=== PATIENT | male | born 1965 | race Caucasian/White ===

== ENCOUNTER → 2019-06-22 | Day surgery (SDC) | payer OTHER ==
[2019-06-21 10:20] LABS: BASOPHILS % 0.6 % (0.0-1.0); EOSINOPHILS # (AUTO) 0.8 (0.0-0.4); EOSINOPHILS % 11.4 % (0.0-6.0); HEMATOCRIT 52.5 % (38.2-49.6); HEMOGLOBIN 18.4 g/dL (14.0-18.0); LYMPHOCYTES % 28.2 % (18.0-39.1); MEAN CORPUSCULAR HEMOGLOBIN 30.3 pg (28-32); MEAN CORPUSCULAR VOLUME 86.3 fL (81-99); MONOCYTES # (AUTO) 0.7 (0.2-0.8); MONOCYTES % 10.3 % (4.4-11.3); NEUTROPHILS # (AUTO) 3.4 (2.1-6.9); NEUTROPHILS % 48.9 % (38.7-80.0); PLATELET COUNT 218 x10e3/uL (140-360); RED BLOOD COUNT 6.08 x10e6/uL (4.3-5.7); RED CELL DISTRIBUTION WIDTH 14.3 % (11.7-14.4)
[2019-06-21 10:37] LABS: ALANINE AMINOTRANSFERASE 35 IU/L (0-55); ALBUMIN 4.4 g/dL (3.5-5.0); ALBUMIN/GLOBULIN RATIO 1.5 (0.8-2.0); ALKALINE PHOSPHATASE 48 IU/L (40-150); ANION GAP 13.3 mmol/L (8-16); BLOOD UREA NITROGEN 11 mg/dL (7-26); BUN/CREATININE RATIO 9 (6-25); CARBON DIOXIDE 27 mmol/L (22-29); CHLORIDE 101 mmol/L (98-107); EST GLOMERULAR FILTRATION RATE > 60 ML/MIN (60-); GLUCOSE 100 mg/dL (74-118); POTASSIUM 4.3 mmol/L (3.5-5.1); SODIUM 137 mmol/L (136-145)
[~2019-06-22] VITALS: Ht 182.9 cm; Wt 118.4 kg
[2019-06-22] VITALS (7 sets, daily range): BP systolic 115–130; BP diastolic 66–84
[~2019-06-22] MED LIST: ALPRAZOLAM 0.5 MG TAB ONE; ASPIR 8181 MG PO; DIPHENHYDRAMINE HCL 25 MG CAP ONE; FENOFIBRATE145 MG PO; FENTANYL CITRATE/PF 100MCG/2 ML INJ ONE; HEPARIN SOD/SOD CHLORIDE 2,000 ML ONE; IOPAMIDOL 370 MG/ML 200 ML INFUS..BTL INJ ONE; LIDOCAINE HCL 2% LOCAL 20 ML VIAL ONE; LOSARTAN-HCTZ1 EAC1 PO; MIDAZOLAM HCL 2 MG/2 ML VIAL ONE; PRAVASTATIN SOD40 MG PO; SODIUM CHLORIDE 0.9% 1000ML 1,000 ML ONE; VERAPAMIL HCL 2.5 MG/ML 2 ML VIAL ONE
--- OUTSIDE RECORDS SUMMARY | 2019-06-22 08:36 | XMS REPORT | Continuity of Care Document ---
Author Author [facility] Address Unknown Phone Unavailable Care Team Providers Care Liturgical Music Director Name Role Phone reQwip Information Tiem[facility] Unavailable Unavailable Problems Problem Status Onset Date Classification Date Reported Comments Source K11.21 - ACUTE SIALOADENITIS Active 08/16/2016 [facility] Medications No Data Provided for This Section Allergies, Adverse Reactions, Alerts No Known Medication Allergies Immunizations No Data Provided for This Section Results No Data Provided for This Section Pathology Reports No Data Provided for This Section Diagnostic Reports Report Value Date Source Neck soft tissue w contrast CT EXAMINATION: CT soft tissue neck with contrast DATE: 08/19/2016 INDICATION: Acute sialoadenitis. Discussion: CT images of the soft tissues the neck are performed following intravenous menstruation of 100 mL Omnipaque 300 contrast material. A marker is placed on the skin surface over the area of clinical concern. There is a 1.4 cm diameter peripherally enhancing low density mass lesion in the left parotid gland at the superior margin of the gland in the superficial lobe. Fat stranding is present in the adjacent subcutaneous soft tissues. There is an enhancing 1 cm lymph node just inferior to the mass, or possibly contiguous with it. The remainder of the left parotid gland is unremarkable. A 1.65 cm diameter level 2A jugular node is noted on the left side without enhancement. Other cervical nodes are within normal size. The other salivary glands are unremarkable. I do not see any solid lithiasis. There is no active periodontal disease. The parapharyngeal and retropharyngeal spaces are unremarkable. Lung apices are unremarkable. IMPRESSION: There is an inflammatory lesion in the left parotid gland which could represent a suppurative lymph node or abscess. Neoplasm would be less likely given the clinical presentation and presence of surrounding inflammation. Follow-up recommended after appropriate antibiotic therapy. 08/19/2016 [facility] Consultation Notes No Data Provided for This Section Discharge Summaries No Data Provided for This Section History and Physicals No Data Provided for This Section Vital Signs No Data Provided for This Section Encounters Location Location Details Encounter Type Encounter Number Reason For Visit Attending Provider ADM Date DC Date Status Source [facility] [place] [facility] [id number] Nicholas Garcia 08/19/2016 08/20/2016 [facility] [place] Procedures No Data Provided for This Section Assessment and Plan No Data Provided for This Section Plan of Care No Data Provided for This Section Social History Social History Date Source Social History TypeResponse 08/20/2016 [facility] [place] Family History No Data Provided for This Section Advance Directives No Data Provided for This Section Functional Status No Data Provided for This Section
--- OUTSIDE RECORDS SUMMARY | 2019-06-22 08:36 | XMS REPORT | Summary of Care ---
Author Author [facility] Outpatient [facility] Address Unknown Phone Unavailable Encounter HQ Encntr_alias(FIN) [id number] Date(s): 08/19/16 - 08/19/16 [facility] Out[facility] [address] [facility], [address] [place] [phone] Discharge Disposition: Home or Self Care Attending Physician: Nicholas Garcia MD Vital Signs No data available for this section Problem List No data available for this section Allergies, Adverse Reactions, Alerts Substance Reaction Severity Status NKDA Active Medications No data available for this section Results No data available for this section Immunizations No data available for this section Procedures No data available for this section Social History Social History Type Response Assessment and Plan No data available for this section
--- NOTE | 2019-06-22 11:10 | NUR ---
1110 Bedside report received from Julius MCCORMICK.Identiferx2. Alert oriented and appropriate, PERRLA, respirations even and unlabored to room air. Pulses x4 extremities equal and strong. Pedal pulses PT/DP x4. Cap fill brisk < 3 sec. Skin warm and dry integrity appears D/I .IV 20g 100cchr via iv controller,to left hand presents healthy w/o s/s of infiltration or complaint. Abdomen soft and supple. pt offered toileting, denies need to urinate or defecate. No personal affects with patient. Family Lewis at bedside. Pt and family verbalizes understanding of POC. P Currently w/o complaint of pain or need. ds/rn
--- NOTE | 2019-06-22 12:00 | NUR ---
1200 RADIAL Compression removal: Initial Cuff volume 10 cc -2 cc Removed No hematoma/bleeding noted with normal neurovascular function. 1215 -2 cc Removed No hematoma/ bleeding noted with normal neurovascular function. 1230 -2 cc Removed No hematoma/bleeding noted with normal neurovascular function. 1245 -2cc Removed No hematoma/ bleeding noted with normal neurovascular function. Air removal completed. Stasis achieved sterile 2x2,Tegaderm, Coban dressing No hematoma, bleeding noted with normal neurovascular function. Wrist splint in place. Pt instructed on POC. Ds/Rn
--- NOTE | 2019-06-22 12:55 | Operative Report ---
DATE OF PROCEDURE: 06/22/2019 SURGEON: Lorne Wilkinson MD INDICATIONS: Coronary artery disease, abnormal stress test. PROCEDURES PERFORMED: 1. Left heart catheterization, selective coronary angiography, left ventriculography. 2. Deployment of right wrist TR band. COMPLICATIONS: None. RECOMMENDATIONS: Medical therapy. DESCRIPTION OF PROCEDURE: Access obtained in the right radial artery. A 5-Zimbabwean sheath was placed. Diagnostic coronary angiogram revealed mild coronary artery disease of less than 20% luminal stenosis, mid left anterior descending artery 30% to 50% stenosis. ANDREW-3 flow in all vessels. LV ejection fraction 60%. LV end-diastolic pressure of 10. No gradient across the aortic valve on pullback. No intervention was deemed necessary. Right wrist guide and sheath removed. TR band applied. The patient discharged home same day. Lorne Wilkinson MD [facility]/MODL /[id number]
--- NOTE | 2019-06-22 13:00 | NUR ---
1300 pt meets DC criteria. Rt radial site assessed for s/s of complication and presence of hematoma. Skin warm, dry, no discolor, and pulses present. IV removed from left hand. Distal tip appears intact. VS WNL. Pt denies pain, sob, or need at this time. Family at [place]. Review of discharge paperwork and follow up instructions. verbalized understanding. Pt to wheelchair and transported to front of hospital. Transferred to private vehicle under own strength w/o incident with DC paperwork in hand. - ds/rn
== END | disposition home or self-care (01) ==
LOC: CATH LAB 08:28
PROVIDERS: ATTEND Internal Medicine Interventional Cardiology
DX: I25.118 Atherosclerotic heart disease of native coronary artery with other forms of angina pectoris (principal); R94.39 Abnormal result of other cardiovascular function study; I10 Essential (primary) hypertension; E78.5 Hyperlipidemia, unspecified; Z01.812 Encounter for preprocedural laboratory examination; Z79.899 Other long term (current) drug therapy; Z79.82 Long term (current) use of aspirin; Z68.35 Body mass index [BMI] 35.0-35.9, adult; Z86.19 Personal history of other infectious and parasitic diseases; Z82.49 Family history of ischemic heart disease and other diseases of the circulatory system
CPT/HCPCS: 36415; 80053; 85025; 93458; C1769; C1887; J2001; J2250; J3010; J7030; Q9967

== ENCOUNTER → 2020-09-12 | Day surgery (SDC) | payer OTHER ==
[2020-09-08 09:20] LABS: BASOPHILS # (AUTO) 0.1 (0.0-0.1); BASOPHILS % 0.8 % (0.0-1.0); EOSINOPHILS # (AUTO) 0.6 (0.0-0.4); EOSINOPHILS % 9.4 % (0.0-6.0); HEMOGLOBIN 13.7 g/dL (14.0-18.0); LYMPHOCYTES # (AUTO) 2.2 (1.0-3.2); LYMPHOCYTES % 35.6 % (18.0-39.1); MEAN CORPUSCULAR HEMOGLOBIN 30.8 pg (28-32); MEAN CORPUSCULAR HGB CONC 34.3 g/dL (31-35); MEAN CORPUSCULAR VOLUME 89.9 fL (81-99); MONOCYTES # (AUTO) 0.6 (0.2-0.8); MONOCYTES % 9.7 % (4.4-11.3); NEUTROPHILS # (AUTO) 2.8 (2.1-6.9); NEUTROPHILS % 44.2 % (38.7-80.0); PLATELET COUNT 182 x10e3/uL (140-360); RED BLOOD COUNT 4.45 x10e6/uL (4.3-5.7); RED CELL DISTRIBUTION WIDTH 13.2 % (11.7-14.4)
[2020-09-08 09:48] LABS: ALANINE AMINOTRANSFERASE 50 IU/L (0-55); ALBUMIN 4.4 g/dL (3.5-5.0); ALBUMIN/GLOBULIN RATIO 1.6 (0.8-2.0); ALKALINE PHOSPHATASE 39 IU/L (40-150); ANION GAP 12.4 mmol/L (8-16); BLOOD UREA NITROGEN 20 mg/dL (7-26); BUN/CREATININE RATIO 17 (6-25); CALCIUM 9.5 mg/dL (8.4-10.2); CARBON DIOXIDE 28 mmol/L (22-29); CHLORIDE 105 mmol/L (98-107); EST GLOMERULAR FILTRATION RATE > 60 ML/MIN (60-); GLUCOSE 98 mg/dL (74-118); POTASSIUM 4.4 mmol/L (3.5-5.1); SODIUM 141 mmol/L (136-145)
[~2020-09-12] VITALS: Ht 182.9 cm; Wt 108.9 kg
--- NOTE | 2020-09-12 15:20 | NUR ---
Report received from Travon Galindo RN. Alert oriented and appropriate, PERRLA, respirations even and unlabored to room air. Pulses x4 extremities equal and palpable . Cap fill brisk < 3 sec. + neurovascular function of right wrist/hand w/ TR Band present w/ 14ml to bladder. No s/s of swelling or discolor at site. VS trend reviewed and medications given. Skin warm and dry integrity appears intact in general. IV left hand presents healthy w/o s/s of infiltration or complaint. Abdomen soft and supple. pt offered toileting, denies need to urinate or defecate. Resting with HOB elevated aprox 30o. Personal affects with patient including spouse. Pt verbalizes understanding of POC for DC. Educated cosmetics demonstrator light use. bed low and locked, side rails up x2 and call light at side. bedside monitoring in use. pt using provided/ personal mask for COVID-19 mitigation. transfer of care -cgf
[2020-09-12 15:30] VITALS: BP 120/69
[2020-09-12 15:55] VITALS: BP 135/69
[2020-09-12 16:10] VITALS: BP 122/74
[2020-09-12 16:25] VITALS: BP 109/60
[2020-09-12 16:40] VITALS: BP 118/66
[2020-09-12 16:55] VITALS: BP 120/82
--- NOTE | 2020-09-12 17:00 | NUR ---
Pt meets discharge criteria. VS wnl, alert and oriented. Pt and Family Understands discharge instruction. Overall general assess w/o gross outliers. Skin warm, dry, and intact. Right radial dressing soft w/o s/s of hematoma. + neurovascular function of right hand present. IV removed and appears distal tip is intact, Jessica Smalls staff internist office based only member verifying. Pt maintains mask on for COVID 19 precautions being taken by wheel chair to awaiting car. Transfers w/o gross distress with discharge paperwork in hand.-cgf
--- NOTE | 2020-09-12 17:15 | Operative Report ---
DATE OF PROCEDURE: 09/12/2020 SURGEON: Lorne Wilkinson MD INDICATIONS: Coronary artery disease, angina, and abnormal stress test. PROCEDURES PERFORMED: 1. Left heart catheterization, selective coronary angiography. 2. Ultrasound-guided access in the right radial artery. 3. Conscious sedation, 35 minutes. 4. Deployment of right wrist TR band. COMPLICATIONS: None. RECOMMENDATIONS: Medical therapy. Consideration of ranolazine for endothelial dysfunction. DESCRIPTION OF PROCEDURE: Access was obtained in the right radial artery using ultrasound guidance. A 5-Sammarinese sheath was placed. Coronary angiography demonstrated minimal coronary artery disease, less than 10% luminal irregularities. Flow/ANDREW 2 was noted in all coronary vessels consistent with endothelial dysfunction. LV end-diastolic pressure of 10. No gradient across the aortic valve on pullback. Right wrist TR band applied. The patient discharged home the same day. MD HERLINDA Morrison/MODL /[id number]
== END | disposition home or self-care (01) ==
LOC: CATH LAB 13:49
PROVIDERS: ATTEND Internal Medicine Interventional Cardiology
DX: I25.118 Atherosclerotic heart disease of native coronary artery with other forms of angina pectoris (principal); R94.39 Abnormal result of other cardiovascular function study; I10 Essential (primary) hypertension; E78.00 Pure hypercholesterolemia, unspecified; E66.9 Obesity, unspecified; Z01.812 Encounter for preprocedural laboratory examination; Z20.828 Contact with and (suspected) exposure to other viral communicable diseases; Z79.82 Long term (current) use of aspirin; Z68.33 Body mass index [BMI] 33.0-33.9, adult; Z82.49 Family history of ischemic heart disease and other diseases of the circulatory system; Z83.3 Family history of diabetes mellitus
CPT/HCPCS: 36415; 76937; 80053; 85025; 93458; C1769; C1887; J2001; J2250; J3010; J7030; Q9967; U0002; 99152

== ENCOUNTER 2021-07-18 15:34 | Emergency (ER) | payer SELFPAY ==
[~2021-07-18] VITALS: Ht 195.6 cm; Wt 154.2 kg
[~2021-07-18 15:34] MED LIST changes: -ALPRAZOLAM 0.5 MG TAB ONE; -DIPHENHYDRAMINE HCL 25 MG CAP ONE; -FENTANYL CITRATE/PF 100MCG/2 ML INJ ONE; -HEPARIN SOD/SOD CHLORIDE 2,000 ML ONE; -IOPAMIDOL 370 MG/ML 200 ML INFUS..BTL INJ ONE; -LIDOCAINE HCL 2% LOCAL 20 ML VIAL ONE; -MIDAZOLAM HCL 2 MG/2 ML VIAL ONE; -SODIUM CHLORIDE 0.9% 1000ML 1,000 ML ONE; -VERAPAMIL HCL 2.5 MG/ML 2 ML VIAL ONE
[2021-07-18] MEDS ORDERED: KETOROLAC TROMETHAMINE 30 MG/ML VIAL IV STA (16:09)
[2021-07-18] MEDS ORDERED: HYDRALAZINE HCL 20 MG/ML VIAL IV STA (16:09)
[2021-07-18 16:17] LABS: BASOPHILS % 0.3 % (0.0-1.0); EOSINOPHILS # (AUTO) 0.1 (0.0-0.4); EOSINOPHILS % 1.3 % (0.0-6.0); HEMATOCRIT 42.7 % (38.2-49.6); HEMOGLOBIN 15.3 g/dL (14.0-18.0); LYMPHOCYTES # (AUTO) 1.1 (1.0-3.2); LYMPHOCYTES % 28.8 % (18.0-39.1); MEAN CORPUSCULAR HEMOGLOBIN 30.8 pg (28-32); MEAN CORPUSCULAR HGB CONC 35.8 g/dL (31-35); MEAN CORPUSCULAR VOLUME 86.1 fL (81-99); MONOCYTES # (AUTO) 0.4 (0.2-0.8); MONOCYTES % 9.2 % (4.4-11.3); NEUTROPHILS # (AUTO) 2.4 (2.1-6.9); NEUTROPHILS % 59.9 % (38.7-80.0); PLATELET COUNT 123 x10e3/uL (140-360); RED BLOOD COUNT 4.96 x10e6/uL (4.3-5.7); RED CELL DISTRIBUTION WIDTH 13.7 % (11.7-14.4)
[2021-07-18 17:56] LABS: ALBUMIN 3.2 g/dL (3.5-5.0); ALBUMIN/GLOBULIN RATIO 0.6 (0.8-2.0); ALKALINE PHOSPHATASE 121 IU/L (40-150); BLOOD UREA NITROGEN 21 mg/dL (7-26); BUN/CREATININE RATIO 13 (6-25); CALCIUM 8.4 mg/dL (8.4-10.2); CARBON DIOXIDE 26 mmol/L (22-29); CHLORIDE 96 mmol/L (98-107); CREATINE KINASE 75 IU/L (30-200); CREATININE, SERUM 1.57 mg/dL (0.72-1.25); EST GLOMERULAR FILTRATION RATE 47 ML/MIN (60-); SODIUM 132 mmol/L (136-145)
[2021-07-18 17:58] LABS: GLUCOSE 601 mg/dL (74-118)
[2021-07-18] MEDS ORDERED: SODIUM CHLORIDE 0.9% 1000ML 1,000 ML IV SCH (18:15)
[2021-07-18] MEDS ORDERED: INSULIN REGULAR, HUMAN 100 UNIT/1 ML IV ONE (18:15)
[2021-07-18] MEDS ORDERED: SODIUM CHLORIDE 0.9% 1000ML 1,000 ML ONE (18:27)
[2021-07-18] MEDS ORDERED: LYRICA50 MG PO (18:34)
[2021-07-18] MEDS ORDERED: HUMALOG MI100 UNIT/2 SQ (18:34)
[2021-07-18] MEDS ORDERED: DILAUDID4 MG PO (18:34)
[2021-07-18 19:04] LABS: CLARITY,URINE SL CLOUDY (CLEAR); COLOR,URINE YELLOW (YELLOW); KETONES,URINE NEGATIVE (NEGATIVE); LEUKOCYTE ESTERASE ,URINE NEGATIVE (NEGATIVE); NITRITE,URINE NEGATIVE (NEGATIVE); PROTEIN,URINE DIPSTICK 2+ (NEGATIVE); URINE UROBILINOGEN 0.2 mg/dL (0.2 - 1)
[2021-07-18 19:21] LABS: BACTERIA,URINE FEW /HPF; EPITHELIAL CELLS,URINE MODERATE /LPF; RBC,URINE 0-5 /HPF (0-5); WBC,URINE (MAN) 0-5 /HPF (0-5)
[2021-07-18 21:57] LABS: ALANINE AMINOTRANSFERASE 22 IU/L (0-55)
== END 2021-07-18 20:03 | disposition home or self-care (01) ==
LOC: ER 15:41
DX: R51.9 Headache, unspecified (principal); R03.0 Elevated blood-pressure reading, without diagnosis of hypertension; M54.2 Cervicalgia; G89.29 Other chronic pain; R94.31 Abnormal electrocardiogram [ECG] [EKG]
CPT/HCPCS: 36415; 70450; 71045; 72125; 80053; 81001; 82550; 82553; 82948; 84484; 85025; 93005; 99283; J0360; J1885; J7030; U0002